=== PATIENT | female | born 1955 | race Caucasian/White ===

== ENCOUNTER 2018-04-19 13:15 | Emergency (ER) | payer MEDICARE ==
[~2018-04-19 13:15] MED LIST: CLON0.1T12 PO; HYDR200T71 PO; LEVO75TA PO; NAPR220C4 PO; OLME1TAB21 PO
[2018-04-19] MEDS ORDERED: DEXAMETHASONE SOD PHOS 10 MG/ML VIAL IV ONE (14:00)
[2018-04-19] MEDS ORDERED: HYDR25TA PO (14:02)
[2018-04-19] MEDS ORDERED: METH4TAB2 PO (14:02)
[2018-04-19] MEDS ORDERED: BETA15CR5 TP (14:02)
--- NOTE | 2018-04-19 14:04 | PHYS DOC ---
Past History Past Medical History: High Cholesterol, Hypertension Past Surgical History: Cholecystectomy, Other Alcohol Use: None Drug Use: None Adult General Chief Complaint Chief Complaint: ALLERGIES HPI HPI 63-year-old female patient states she reports that her yard 6 days ago and for the last 4 days she had rash in her face and extremities and neck and gentle area with itching that gradually getting worse. Patient denies shortness of breath, swelling of her tongue, fever and chills, sick contact. Patient states she gets the same rash during summertime while working at her yard but she didn 't have seen poison nia in her yard. Patient states she took Benadryl without improvement of her condition. Review of Systems Review of Systems Constitutional: Denies fever or chills [] Eyes: Denies change in visual acuity, redness, or eye pain [] HENT: Denies nasal congestion or sore throat [] Respiratory: Denies cough or shortness of breath [] Cardiovascular: No additional information not addressed in HPI [] GI: Denies abdominal pain, nausea, vomiting, bloody stools or diarrhea [] : Denies dysuria or hematuria [] Musculoskeletal: Denies back pain or joint pain [] Integument: Reports rash] Neurologic: Denies headache, focal weakness or sensory changes [] Endocrine: Denies polyuria or polydipsia [] All other systems were reviewed and found to be within normal limits, except as documented in this note. Current Medications Current Medications Current Medications Medications (Trade) Dose Ordered Sig/Anil Start Time Stop Time Status Last Admin Dose Admin Dexamethasone Sodium Phosphate (Decadron) 10 mg 1X ONCE 04/19/18 14:00 04/19/18 14:01 Allergies Allergies Allergies Coded Allergies Type Severity Reaction Last Updated Verified codeine Allergy Intermediate Swelling 06/09/14 No heparin Allergy Unknown 06/09/14 No Physical Exam Physical Exam Constitutional: Well developed, well nourished, mild distress, non-toxic appearance. [] HENT: Normocephalic, atraumatic, oropharynx moist, no oral exudates, nose normal. [] Eyes: PERRLA, EOMI, conjunctiva normal, no discharge. [] Neck: Normal range of motion, no tenderness, supple, no stridor. [] Cardiovascular:Heart rate regular rhythm, no murmur [] Lungs & Thorax: Bilateral breath sounds clear to auscultation [] Abdomen: Bowel sounds normal, soft, no tenderness, no masses, no pulsatile masses. [] Skin: Warm, dry, no erythema, erythematous rash on face and around the right eye without involvement of the eye, it was 2/on upper neck and right upper extremity, patient refused to have genital inspection for evaluation of the rash in that area. Back: No tenderness, no CVA tenderness. [] Extremities: No tenderness, no cyanosis, no clubbing, ROM intact, no edema. [] Neurologic: Alert and oriented X 3, normal motor function, normal sensory function, no focal deficits noted. [] Psychologic: Affect normal, judgement normal, mood normal. [] Current Patient Data Vital Signs Vital Signs Date Time Temp Pulse Resp B/P (MAP) Pulse Ox O2 Delivery O2 Flow Rate FiO2 04/19/18 13:18 97.8 51 18 96 Room Air EKG EKG [] Radiology/Procedures Radiology/Procedures [] Course & Med Decision Making Course & Med Decision Making discharge: I've spoken with the patient and/or caregivers. I've explained the patient's condition, diagnosis and treatment plan based on information available to me at this time. I've answered the patient's and/or caregivers questions and addressed any concerns. The patient and/or caregivers have a good understanding the patient's diagnosis, condition and treatment plan as can be expected at this point. Vital signs have been stabilized. The patient's condition is stable for discharge from the emergency department. The patient will pursue further outpatient evaluation with her primary care provider or other designated consulting physician as outlined in the discharge instructions. Patient and/or caregivers are agreeable to this plan of care and follow-up instructions have been explained in detail. The patient and/or caregivers have received these instructions in written format and expressed understanding of these discharge instructions. The patient and her caregivers are aware that if any significant change in condition or worsening of symptoms should prompt him to immediately return to this of the closest emergency department. If an emergent department is not readily available I would encourage him to call 911. Gin Disclaimer Arielon Disclaimer This electronic medical record was generated, in whole or in part, using a voice recognition dictation system. Departure Departure: Impression: Primary Impression: Contact dermatitis Disposition: HOME, SELF-CARE ([email or web address]) Condition: STABLE Referrals: ROBERTO BECKETT MD (PCP) Patient Instructions: Contact Dermatitis, Poison Nia Additional Instructions: Drink plenty of liquids Follow-up with your primary care physician in 3-5 days Return to ER if not getting better Scripts Hydroxyzine Hcl (HYDROXYZINE HCL) 25 Mg Tablet 1 TAB PO TID, #30 TAB Prov: ANNITA PERALTA MD 04/19/18 Betamethasone Dipropionate (BETAMETHASONE DIPROPIONATE) 15 Gm Cream..g. 1 SERGIO TP BID, #45 GM 1 Refill Prov: ANNITA PERALTA MD 04/19/18 Methylprednisolone (MEDROL) 4 Mg Tab.ds.pk 1 PKG PO UD, #1 PKG Prov: ANNITA PERALTA MD 04/19/18 ANNITA PERALTA MD Apr 19, 2018 14:04
[2018-04-19] MEDS ORDERED: DEXAMETHASONE SOD PHOS 10 MG/ML VIAL IM ONE (14:30)
[2018-04-19 15:04] VITALS: BP 162/73
== END 2018-04-19 15:04 | disposition home or self-care (01) ==
LOC: ER 13:15
DX: L25.9 Unspecified contact dermatitis, unspecified cause (principal); E78.00 Pure hypercholesterolemia, unspecified; I10 Essential (primary) hypertension; Z88.5 Allergy status to narcotic agent; Z88.6 Allergy status to analgesic agent
CPT/HCPCS: 96372; 99283; J1100